=== PATIENT | male | born 1975 | race Caucasian/White ===

== ENCOUNTER 2023-04-04 15:31 | Emergency (ER) | payer MEDICAID, SELFPAY ==
[2023-04-04 15:34] VITALS: BP 172/91; PULSE 89; RESP 20; TEMP 36.6; O2SAT 94; BMI 30.5
--- NOTE | 2023-04-04 15:40 | XR_ITS ---
The [address] [address] Patient Name: ALICIA SANCHEZ MRN: [id number] date: 1975 Sex: M Assigned Patient Location: ER Current Patient Location: ED.MAIN Accession/Order Number: [id number] Exam Date: 04/04/2023 16:09 Report Date: 04/04/2023 17:17 At the request of: MICA ELDER Procedure: XR shoulder RT min 2V EXAM: XR shoulder RT min 2V HISTORY: Injury right shoulder after a fall. COMPARISON: None. TECHNIQUE: 3 views of the right shoulder. FINDINGS: There is an acute displaced fracture involving the right humeral neck and the greater tuberosity. There is medial displacement of the humeral shaft in relation to the humeral head. Degenerative changes of the acromioclavicular joint with inferior spurring. XR/XR shoulder RT min 2V IMPRESSION: Acute displaced fracture involving the right proximal humerus. Electronically authenticated by: MICHELL MOSCOSO Date: 04/04/2023 17:17
--- NOTE | 2023-04-04 15:53 | ED.UPPEXIN1 ---
HPI - Extremity Injury (Upper) General Chief Complaint: Extremity Injury, Upper Stated Complaint: Shoulder Injury from fall in bathroom Time Seen by Provider: 04/04/23 15:45 Source: patient Mode of arrival: walk-in Limitations: no limitations History of Present Illness HPI narrative: patient is a 47-year-old male presents to the Emergency Room with concerns of right shoulder pain. He is right-hand dominant, states he was in the shower when he fell landing directly on the right shoulder. He denies any head or neck injury, no loss of consciousness. Pain 5/10 aching at rest, pain 10/10 with attempteed movement. He denies any pain to his elbow hand or wrist. Patient requests only an ice pack at this time, declined any Tylenol or Motrin. X-ray will be ordered for further evaluation given limited motion. patient not currently working. States he is looking for employment. MD complaint: injury to: Reports right and shoulder Other Extremity Injury: Right: shoulder Hand dominance: right Place: Reports home Severity: moderate Relieving factors: Reports rest Exacerbating factors: Reports movement of extremity Context: Reports fall (patient believes he landed on the outside aspect of his shoulder. Did not brace his fall.) and direct blow Related Data Allergies Allergy/AdvReac Type Severity Reaction Status Date / Time No Known Drug Allergies Allergy Verified 04/04/23 15:39 Review of Systems ROS Constitutional Denies: fever or chills Ears, nose, mouth, and throat Denies: throat pain or neck pain Cardiovascular Denies: chest pain or palpitations Respiratory Denies: shortness of breath or cough Gastrointestinal Denies: abdominal pain or nausea Genitourinary Denies: painful urination Musculoskeletal Denies: back pain or neck pain Integumentary/Breast Denies: rash Neurological Denies: headache or numbness in extremities Psychiatric Denies: anxiety or mood swings Allergic/Immunologic Denies: hives PFSH PFSH Social History Smoking status: Never smoker Exam Narrative Exam Narrative: Nurses notes and vital signs reviewed and patient is not hypoxic. General: The patient appears well and in no apparent distress guarding right shoulder with motion seated on and of bed. Skin: Warm, dry, no pallor noted.no evidence of rash Head: Normocephalic, atraumatic Neck: Supple, trachea mid-line, no tenderness, no lymphadenopathy, no midline neck tenderness. Eye: Pupils are equal, round and reactive to light, EOMI Ears, Nose, Mouth, and Throat: external exam unremarkable. Cardiovascular: Regular Rate and Rhythm Respiratory: Patient is in no distress, no accessory muscle use, lungs are clear to auscultation, no wheezing, rales or rhonchi. Chest Wall: no tenderness, no clavicular tenderness. Back: non-tender, no CVA tenderness Musculoskeletal: no obvious swelling or deformity, localized tenderness to the AC joint of shoulder. Tenderness to the lateral deltoid region, gentle pendulums tolerable to 40 degrees with forward flexion, patient notes significant pain with attempted motion on his own. Patient has full painless range of motion of the elbow hand and wrist. left shoulder unremarkable. Neurological: A&O x4 Psychiatric: Cooperative Constitutional Vital Signs, click to edit/add: Last Vital Signs Temp 97.9 F 04/04/23 15:34 Pulse 89 04/04/23 15:34 Resp 20 04/04/23 15:34 BP 172/91 H 04/04/23 15:34 Pulse Ox 94 L 04/04/23 15:34 O2 Del Method Room Air 04/04/23 15:34 Course Consultations Consultation #1: spoke with Dr. Jenkins via text message, recommended CTof the right shoulder with reconstructions, swelling to the right arm and follow-up in the office tomorrow. Time: 16:52 Vital Signs Vital signs: Vital Signs Temperature 97.9 F 04/04/23 15:34 Pulse Rate 89 04/04/23 15:34 Respiratory Rate 20 04/04/23 15:34 Blood Pressure 172/91 H 04/04/23 15:34 Pulse Oximetry 94 L 04/04/23 15:34 Oxygen Delivery Method Room Air 04/04/23 15:34 Temperature 97.9 F 04/04/23 15:34 Pulse Rate 89 04/04/23 15:34 Respiratory Rate 20 04/04/23 15:34 Blood Pressure 172/91 H 04/04/23 15:34 Pulse Oximetry 94 L 04/04/23 15:34 Oxygen Delivery Method Room Air 04/04/23 15:34 MDM - Extremity Injury (Upper) MDM Narrative Medical decision making narrative: x-ray ordered given limited motion right shoulder following fall with direct injury, patient declines Tylenol and Motrin. Injury occurred prior to arrival, ice pack applied, no obvious deformity. x-ray discussed showing a complex displaced proximal humerus fracture. Reviewed x-rays with Dr. Jenkins orthopedics, recommends CT with reconstructions for likely operative planning, sling and swath and follow up to the office tomorrow. The patient agreeable to pain medication here and two to take home, declined further prescription at this time. Will keep appointment tomorrow with orthopedics scheduled for 10 AM. We discussed the importance of ice, we discussed pain medication. Patient would like to take Tylenol at home but will have [place] on hand if pain worsens discussed importance of sling use pending orthopedic follow-up. The patient is to followup with Dr. Jenkins tomorrow at 10 am: [facility] or to return to the emergency department should any of the signs or symptoms worsen or new symptoms develop. Patient had questions answered. The patient agrees with the following Diagnosis and Treatment plan and the patient will be discharged home. Imaging Data right shoulder: My impression: complex displaced proximal humerus fracture Discharge Plan Discharge Chief Complaint: Extremity Injury, Upper Clinical Impression: Acute pain of right shoulder Fracture of proximal end of right humerus Qualifiers: Encounter type: initial encounter Fracture type: closed Fracture morphology: other fracture Fracture alignment: displaced Qualified Code(s): S42.291A - Other displaced fracture of upper end of right humerus, initial encounter for closed fracture Patient Disposition: Home, Self-Care Time of Disposition Decision: 17:25 Condition: Good Additional Instructions: [place] 5-325 for breakthrough pain one tablet every six hours, Stand Alone Forms: Portal Instructions Referrals: Shane Jenkins MD [Physician] - 04/05/23 10:00 am Procedures ED Procedure Instructions Procedures Procedures: patient placed in a sling and swath, neurovascularly intact status post application to the right arm, pain improved.
--- NOTE | 2023-04-04 16:49 | CT_ITS ---
The [address] [address] Patient Name: ALICIA SANCHEZ MRN: [id number] date: 1975 Sex: M Assigned Patient Location: ER Current Patient Location: Accession/Order Number: [id number] Exam Date: 04/04/2023 17:05 Report Date: 04/04/2023 18:26 At the request of: ZOHAIB LO Procedure: CT shoulder RT wo con EXAM: CT shoulder RT wo con COMPARISON: Same day x-rays. CLINICAL INDICATION: complex shoulder fracture TECHNIQUE: Multiplanar CT images of the right shoulder without contrast. Dose reduction techniques were achieved by using automated exposure control and/or adjustment of mA and/or kV according to patient size and/or use of iterative reconstruction technique. FINDINGS: Acute highly comminuted fracture of the right proximal humerus involving the humeral head and surgical neck. Comminuted fracture of the surgical neck demonstrates severe anteromedial displacement approximately 3 cm as well as significant impaction of fracture fragments. Impacted surgical neck fracture fragment approaching the anterior glenohumeral recess as best seen on series 4 image 29 and series 8 image 53. As best appreciated on axial imaging, comminuted lesser tuberosity humeral head fracture fragments may be anteriorly subluxed relative to the glenoid. There is intra-articular extension into the superior humeral head articular surface as best seen on series 4 image 22 and series 7 image 34. A majority of the articular surface remains intact and appears to maintain somewhat of a relationship with the glenoid, no leslie dislocation. Greater tuberosity comminuted fracture demonstrates impaction and superolateral displacement. Small fracture fragments can be seen interposed between the posterior humeral head articular surface and posterior glenoid on series 4 images 26 and 27 and series 8 image 61. Osteopenia. Moderate osteoarthritis right AC joint. No acute findings in the visualized right chest. CT/CT shoulder RT wo con IMPRESSION: Highly comminuted displaced Neer 4 part right proximal humerus-humeral head fracture. Intra-articular extension and suggestion of anteriorly subluxed lesser tuberosity humeral head fracture fragments relative to the glenoid, without leslie glenohumeral dislocation as described above. Additional details as above. Electronically authenticated by: FARAZ PORTER Date: 04/04/2023 18:26
[2023-04-04] MEDS: HYDROCODONE/ACET 5-325 MG TABLET 2 TAB PO (17:12)
[2023-04-04] MEDS: HYDROCODONE/ACET 5-325 MG TABLET 1 TAB PO (17:13)
== END 2023-04-04 17:23 | disposition home or self-care (01) ==
PROVIDERS: Emergency Provider Emergency Medicine
DX: M25.511 Pain in right shoulder (principal); W18.2XXA Fall in (into) shower or empty bathtub, initial encounter
CPT/HCPCS: 73030; 73200; 99284

== ENCOUNTER 2023-04-08 14:45 | Outpatient (OUT) | payer MEDICAID, SELFPAY ==
--- NOTE | 2023-04-08 | ECG_ITS ---
The [facility] Test Date: 2023-04-08 Pat Name: ALICIA SANCHEZ Department: Room: - Gender: Male [employer]: : 1975 Requested By: [id number] Order Number: [id number] Reading MD: YECENIA GOMEZ Measurements Intervals [place] Rate: 78 P: 71 FL: 149 QRS: 83 QRSD: 86 T: 80 QT: 379 QTc: 432 Interpretive Statements SINUS RHYTHM No previous ECG available for comparison Electronically Signed On 04-10-2023 12:06:35 EST by YECENIA GOMEZ
--- OUTSIDE RECORDS SUMMARY | 2023-04-08 14:50 | XMS_ITS | CCD ---
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 Name Role Phone JACI LASSITER Admitting Unavailable LOUKA, JACI Attending Unavailable ROXY EBNDER Referring Unavailable JESUS MCINTYRE Consulting Unavailable SHALL, CARINA Rey Consulting Unavailable AOUAD, EN Puckett Consulting Unavailable HAQUE, SARANYA Figueroa Consulting Unavailable REQUEST, NONE LISTED Primary Care Unavaila ble PAY, DR HWANG Consulting Unavailable PAY, DR HWANG Attending Unavailable PAY, DR HWANG Admitting Unavailable HOY, DR ULRICH Admitting Unavailable REQUEST, NONE LISTED Primary Care Unavaila ble HOY, DR ULRICH Consulting Unavailable HOY, DR ULRICH Attending Unavailable JenyJelani Attending Unavailab le Jelani Fermin Admitting Unavailab le NON STAFF Primary Care Unavailable Problems Active Problems Problem Classification Problem Date Documented Da te Episodic/Chronic Unclassified (3 sources) CONTACT W/AND (SUSP) EXPOS COVID-19; Translations: [CONTACT W/AND (SUSP) EXPOS COVID-19] Onset: 04-28-2021 Past or Other Problems Problem Classification Problem Date Documented Da te Episodic/Chronic Unclassified (1 source) CONTACT W/AND (SUSP) EXPOS COVID-19; Translations: [CONTACT W/AND (SUSP) EXPOS COVID-19] Onset: 04-25-2021 Results Test Name Value Interpretation Reference Range Facil ity Covid-19 PCR (CVD[facility])on 03-30 SARS-CoV-2 (COVID-19) RNA VIRY+probe Ql (Unsp spec) Not detected Normal NOT DETECTED [facility] Comment on above: Result Comment: This test is not yet approved or cleared by the [place] FDA. When there are no FDA-approved or cleared tests available, and other criteria are met, FDA can make tests available under an emergency access mechanism called an Emergency Use Authorization (EUA). The EUA for this test is supported by the [place] of Health and Human Service's (HHS's) declaration that circumstances exist to justify the emergency use of in vitro diagnostics for the detection and/or diagnosis of the virus that causes COVID-19. This EUA will remain in effect (meaning this test can be used) for the duration of the COVID-19 declaration justifying emergency of IVDs, unless it is terminated or revoked by FDA (after which the test may no longer be used). When diagnostic testing is negative, the possibility of a false negative should be considered in the context of a patient's recent exposures and the presence of clinical signs and symptoms consistent with SARS-CoV-2. Performed By: #### C VDTB #### [facility] [address] [place] [address] Dr. Paola Dominguez Covid-19 PCR ([facility])on 04-29 SARS-CoV-2 (COVID-19) RNA VIRY+probe Ql (Unsp spec) Not detected Normal NOT DETECTED [facility] Comment on above: Result Comment: This test is not yet approved or cleared by the [place] FDA. When there are no FDA-approved or cleared tests available, and other criteria are met, FDA can make tests available under an emergency access mechanism called an Emergency Use Authorization (EUA). The EUA for this test is supported by the [place] of Health and Human Service's (HHS's) declaration that circumstances exist to justify the emergency use of in vitro diagnostics for the detection and/or diagnosis of the virus that causes COVID-19. This EUA will remain in effect (meaning this test can be used) for the duration of the COVID-19 declaration justifying emergency of IVDs, unless it is terminated or revoked by FDA (after which the test may no longer be used). When diagnostic testing is negative, the possibility of a false negative should be considered in the context of a patient's recent exposures and the presence of clinical signs and symptoms consistent with SARS-CoV-2. Performed By: #### C VDTB #### [facility] [address] [place] [address] Swatiandrea Olmos Jose 09-09-2018 Erythrocyte distribution width (RBC) [Ratio] 12.0 % Normal 11.8-14.4 [facility] Comment on above: Performed By: #### C BC #### [address] [address] Patient Registration Clerk: Chaz Sweeney MD Hematocrit (Bld) [Volume fraction] 53.6 % High 40.7-50.3 [facility] Comment on above: Performed By: #### C BC #### [address] [address] Patient Registration Clerk: Chaz Sweeney MD Hemoglobin (Bld) [Mass/Vol] 17.6 g/dL High 13.0-17.0 [facility] Comment on above: Performed By: #### C BC #### [address] [address] Patient Registration Clerk: Chaz Sweeney MD MCH (RBC) [Entitic mass] 30.8 pg Normal 25.2-33.5 [facility] Comment on above: Performed By: #### C BC #### [address] [address] Patient Registration Clerk: Chaz Sweeney MD MCHC (RBC) [Mass/Vol] 32.8 g/dL Normal 28.4-34.8 [facility] Comment on above: Performed By: #### C BC #### [address] [address] Patient Registration Clerk: Chaz Sweeney MD MCV (RBC) [Entitic vol] 93.7 fL Normal 82.6-102.9 [facility] Comment on above: Performed By: #### C BC #### [address] [address] Patient Registration Clerk: Chaz Sweeney MD NRBC Automated 0.0 per 100 WBC Normal 0.0 [facility] Comment on above: Performed By: #### C BC #### [address] [address] Patient Registration Clerk: Chaz Sweeney MD Platelet mean volume (Bld) [Entitic vol] 12.2 fL Normal 8.1-13.5 [facility] Comment on above: Performed By: #### C BC #### [address] [address] Patient Registration Clerk: Chaz Sweeney MD Platelets (Bld) [#/Vol] 263 10*3/uL Normal 138-453 [facility] Comment on above: Performed By: #### C BC #### [address] [address] Patient Registration Clerk: Chaz Sweeney MD RBC (Bld) [#/Vol] 5.72 10*6/uL Normal 4.21-5.77 [facility] Comment on above: Performed By: #### C BC #### [address] [address] Patient Registration Clerk: Chaz Sweeney MD WBC (Bld) [#/Vol] 15.5 10*3/uL High 3.5-11.3 [facility] Comment on above: Performed By: #### C BC #### [address] [address] Patient Registration Clerk: Chaz Sweeney MD PTon 09-09-2018 INR Coag (PPP) [Relative time] 1.0 {INR} Normal [facility] Comment on above: Result Comment: Therapeutic Range: Moderate Anticoagulant Intensity: INR = 2.0-3.0 High Anticoagulant Intensity: INR = 2.5-3.5 Performed By: #### P T #### [address] [address] Patient Registration Clerk: Chaz Sweeney MD PT Coag (PPP) [Time] 10.9 s Normal 9.0-12.0 [facility] Comment on above: Performed By: #### P T #### [address] [address] Patient Registration Clerk: Chaz Sweeney MD Basic Metab w/rfx MGon 09-08 (cont.) Normal [facility] Comment on above: Result Comment: Aver age GFR for 40-49 years old: 99 mL/min/1.73sq m Chronic Kidney Disease: <60 mL/min/1.73sq m Kidney failure: <15 mL/min/1.73sq m eGFR calculated using average adult body mass. Additional eGFR calculator available at: http://www.[address]/multiple_crcl_2011.htm Performed By: #### C BC, BMPX, LIVP #### [place] [address] Patient Registration Clerk: Chaz Sweeney MD Anion gap [Moles/Vol] 20 mmol/L High 9-17 [facility] Comment on above: Performed By: #### C BC, BMPX, LIVP #### [facility] [employer] [address] [place] [address] Patient Registration Clerk: Chaz Sweeney MD Calcium [Mass/Vol] 9.9 mg/dL Normal 8.6-10.4 [facility] Comment on above: Performed By: #### C BC, BMPX, LIVP #### [facility] [employer] [address] [place] [address] Patient Registration Clerk: Chaz Sweeney MD Chloride [Moles/Vol] 101 mmol/L Normal 98-107 [facility] Comment on above: Performed By: #### C BC, BMPX, LIVP #### [facility] [address] [place] [address] Patient Registration Clerk: Chaz Sweeney MD CO2 [Moles/Vol] 19 mmol/L Low 20-31 [facility] Comment on above: Performed By: #### C BC, BMPX, LIVP #### [facility] [address] [place] [address] Patient Registration Clerk: Chaz Sweeney MD Creatinine [Mass/Vol] 0.70 mg/dL Normal 0.70-1.20 [facility] Comment on above: Performed By: #### C BC, BMPX, LIVP #### [facility] [address] [place] [address] Patient Registration Clerk: Chaz Sweeney MD GFR, Amer >60 Normal >60 [facility] Comment on above: Performed By: #### C BC, BMPX, LIVP #### [facility] [address] [place] [address] Patient Registration Clerk: Chaz Sweeney MD GFR,non Amer >60 Normal >60 [facility] Comment on above: Performed By: #### C BC, BMPX, LIVP #### [facility] [employer] [address] [place] [address] Patient Registration Clerk: Chaz Sweeney MD Glucose [Mass/Vol] 149 mg/dL High 70-99 [facility] Comment on above: Performed By: #### C BC, BMPX, LIVP #### [facility] [address] [place] [address] Patient Registration Clerk: Chaz Sweeney MD Potassium [Moles/Vol] 4.0 mmol/L Normal 3.7-5.3 [facility] Comment on above: Performed By: #### C BC, BMPX, LIVP #### [facility] [address] [place] [address] Patient Registration Clerk: Chaz Sweeney MD Sodium [Moles/Vol] 140 mmol/L Normal 135-144 [facility] Comment on above: Performed By: #### C BC, BMPX, LIVP #### [facility] [address] [place] [address] Patient Registration Clerk: Chaz Sweeney MD Urea nitrogen [Mass/Vol] 11 mg/dL Normal -20 [facility] Comment on above: Performed By: #### C BC, BMPX, LIVP #### [facility] [address] [place] [address] Patient Registration Clerk: Chaz Sweeney MD BUN/CRE Ratio NOT REPORTED Normal - [facility] Comment on above: Performed By: #### C BC, BMPX, LIVP #### [facility] [address] [place] [address] Patient Registration Clerk: Chaz Sweeney MD Staging: NOT REPORTED Normal [facility] Comment on above: Performed By: #### C BC, BMPX, LIVP #### [facility] [address] [place] [address] Patient Registration Clerk: Chaz Sweeney MD CBCon 09-08-2018 Erythrocyte distribution width (RBC) [Ratio] 11.8 % Normal 11.8-14.4 [facility] Comment on above: Performed By: #### C BC, BMPX, LIVP #### [facility] [address] [place] [address] Patient Registration Clerk: Chaz Sweeney MD Hematocrit (Bld) [Volume fraction] 55.8 % High 40.7-50.3 [facility] Comment on above: Performed By: #### C BC, BMPX, LIVP #### [facility] [address] [place] [address] Patient Registration Clerk: Chaz Sweeney MD Hemoglobin (Bld) [Mass/Vol] 18.3 g/dL High 13.0-17.0 [facility] Comment on above: Performed By: #### C BC, BMPX, LIVP #### [facility] [address] [place] [address] Patient Registration Clerk: Chaz Sweeney MD MCH (RBC) [Entitic mass] 30.8 pg Normal 25.2-33.5 [facility] Comment on above: Performed By: #### C BC, BMPX, LIVP #### [facility] [employer] [address] [place] [address] Patient Registration Clerk: Chaz Sweeney MD MCHC (RBC) [Mass/Vol] 32.8 g/dL Normal 28.4-34.8 [facility] Comment on above: Performed By: #### C BC, BMPX, LIVP #### [facility] [employer] [address] [place] [address] Patient Registration Clerk: Chaz Sweeney MD MCV (RBC) [Entitic vol] 93.8 fL Normal 82.6-102.9 [facility] Comment on above: Performed By: #### C BC, BMPX, LIVP #### [address] [address] Patient Registration Clerk: Chaz Sweeney MD NRBC Automated 0.0 per 100 WBC Normal 0.0 [facility] Comment on above: Performed By: #### C BC, BMPX, LIVP #### [address] [address] Patient Registration Clerk: Chaz Sweeney MD Platelet mean volume (Bld) [Entitic vol] 11.8 fL Normal 8.1-13.5 [facility] Comment on above: Performed By: #### C BC, BMPX, LIVP #### [facility] [employer] [address] [place] [address] Patient Registration Clerk: Chaz Sweeney MD Platelets (Bld) [#/Vol] 257 10*3/uL Normal 138-453 [facility] Comment on above: Performed By: #### C BC, BMPX, LIVP #### [facility] [employer] [address] [place] [address] Patient Registration Clerk: Chaz Sweeney MD RBC (Bld) [#/Vol] 5.95 10*6/uL High 4.21-5.77 [facility] Comment on above: Performed By: #### C BC, BMPX, LIVP #### [facility] [address] [place], [place] [phone] Patient Registration Clerk: Chaz Sweeney MD WBC (Bld) [#/Vol] 15.1 10*3/uL High 3.5-11.3 [facility] Comment on above: Performed By: #### C BC, BMPX, LIVP #### [facility] [address] [place] [address] Patient Registration Clerk: Chaz Sweeney MD CONSULTATIONon 09-08-[address] [address] CONSULTATION PATIENT NAME: ALICIA ROBERTSON : 1975 MED REC NO: [id number] ROOM: [facility] ACCOUNT NO: [id number] ADMIT DATE: 09/08/2018 PROVIDER: Jesus Mcintyre CONSULT DATE: 09/08/2018 LOCATION: [address], [facility] HISTORY OF PRESENT ILLNESS: This is a 42-year-old who was transferred from [facility] with a sublingual abscess. The reviewers, refer to the chart for definitive details. The patient denies preceding similar history. He admits to awakening yesterday morning with tongue swelling and pain. He denies directed therapy until presenting to the outside facility. The patient denies recent dental injury. 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 CT with contrast was performed earlier today at the outside facility. Report suggested heterogeneous enlargement of the tongue with oropharyngeal narrowing. Also described was a partially circumscribed hypodense lesion in the sublingual space measuring 3.1 x 1.3 cm with surrounding hyperdensity measuring up to 4.3 cm x 1.8 cm. Increased number of borderline enlarged lymph nodes. The patient was subsequently transferred to the [facility] for definitive care. Prior to transfer, he was reportedly administered IV Unasyn, Cleocin, Solu-Medrol. PAST MEDICAL HISTORY: None. BLOOD WORK: 09/08/2018, white blood cell count 15.1, hemoglobin 18.3, platelets within normal limits. PRESENT MEDICATIONS: Include, but are not limited to, Lovenox and Cleocin. ALLERGIES: None. VITAL SIGNS: Temperature 99.3, heart rate 111, respiratory rate 18, blood pressure 115/102, O2 saturation 91% on room air, weight 190 pounds. SOCIAL HISTORY: Former smoker. IMAGING: Repeat CT neck with contrast, per Oral surgery, is pending. PHYSICAL EXAMINATION: Bedside exam was performed with the hospitalist, Dr. Lassiter, in attendance. This revealed a 42-year-old, in no acute distress. His voice was just slightly muffled. There was no respiratory distress or stridor. He did display intermittent cough. He was able to tolerate his own secretions. There was no respiratory distress or stridor. Facial exam was unremarkable. Neck exam visually was unremarkable. Palpation of the neck was unremarkable. The neck was nontender with minimal manipulation. The patient denied otalgia. Bilateral ear exam was unremarkable. Anterior rhinoscopy revealed mild left septal deviation with mild mucosal edema. Oral exam revealed a grossly unremarkable tongue. There was mild floor of mouth edema bilaterally. Of note was end-stage dentition involving the right mandibular apparent second premolar and 2 molars. Buccal and gingival mucosa displayed minimal pale edema. The oropharynx was widely patent. PROCEDURE: Flexible laryngoscopy. The patient remained in his hospital bed. He was placed in the semi-recumbent position. Hospitalist, Dr. Lassiter, was in attendance. Verbal consent was obtained. A lubricated flexible laryngoscope was easily passed through the right nasal airway. The right nasal airway and nasopharynx were unremarkable. The hypopharynx and larynx were unremarkable. There was normal vocal cord anatomy and function. The glottis was widely patent. The immediate subglottis was unremarkable. There was no appreciable hypopharyngeal edema. Tongue base was unremarkable. The endoscope was slowly and gently removed. This completed the procedures. The patient tolerated the procedure without undue discomfort or complication. IMPRESSION: Sublingual abscess per outside CT neck with contrast. This appears to be a primary dental process. There was noted associated end-stage right mandibular dentition. Airway is widely patent per bedside exam including flexible upper airway endoscopy. No immediate intervention is required from an otolaryngology standpoint. Recommend oral surgery consultation for definitive management. Continue Cleocin as ordered. Consider 900 mg q.8 dosing. Consider infectious disease input. Consider Decadron 10 mg IV q. 8. Would also suggest maintaining n.p.o. status. The patient appeared to understand these plans and considerations. All questions were answered. The above was discussed with Dr. Lassiter, the hospitalist. Please do not hesitate to contact myself with any specific questions regarding the above. JESUS MCINTYRE [id number] Doc#: [id number] CC: Normal [facility] CT SOFT TISSUE NECK W ROSEKrissy Gucci 09-08-2018 CT SOFT TISSUE NECK W CONTRAST EXAMINATION: CT OF THE NECK SOFT TISSUE WITH CONTRAST 09/08/2018 TECHNIQUE: CT of the neck was performed with the administration of intravenous contrast. Multiplanar reformatted images are provided for review. Dose modulation, iterative reconstruction, and/or weight based adjustment of the mA/kV was utilized to reduce the radiation dose to as low as reasonably achievable. COMPARISON: None. HISTORY: ORDERING SYSTEM PROVIDED HISTORY: sublingual abscess TECHNOLOGIST PROVIDED HISTORY: Ordering Physician Provided Reason for Exam: sublingual abscess swelling under tongue FINDINGS: PHARYNX/LARYNX: The palatine tonsils are normal in appearance. The tongue is normal in appearance. The valleculae, epiglottis, aryepiglottic folds and pyriform sinuses appear unremarkable. The true and false vocal cords are normal in appearance. No mass or abscess is seen. SALIVARY GLANDS/THYROID: The parotid and submandibular glands appear unremarkable. The thyroid gland appears unremarkable. LYMPH NODES: No cervical or supraclavicular lymphadenopathy is seen. SOFT TISSUES: No appreciable soft tissue swelling or mass is seen. BRAIN/ORBITS/SINUSES: The visualized portion of the intracranial contents appear unremarkable. The visualized portion of the orbits, paranasal sinuses and mastoid air cells demonstrate no acute abnormality. LUNG APICES/SUPERIOR MEDIASTINUM: No focal consolidation is seen within the visualized lung apices. No superior mediastinal lymphadenopathy or mass. The visualized portion of the trachea appears unremarkable. BONES: No aggressive appearing lytic or blastic bony lesion. IMPRESSION: No acute abnormality of the soft tissue structures of the neck. No sublingual abscess noted. Interpreted by: Derrell Zamora MD Signed by: Derrell Zamora MD 09/08/18 Final result Normal [facility] Liver Profileon 09-08-2018 Albumin [Mass/Vol] 4.4 g/dL Normal 3.5-5.2 [facility] Comment on above: Performed By: #### C BC, BMPX, LIVP #### [facility] [address] [place] [address] Patient Registration Clerk: Chaz Sweeney MD Albumin/Globulin [Mass ratio] 1.2 {ratio} Normal 1.0-2.5 [facility] Comment on above: Performed By: #### C BC, BMPX, LIVP #### [facility] [employer] [address] [place] [address] Patient Registration Clerk: Chaz Sweeney MD Alkaline Phos 119 U/L Normal 40-129 [facility] Comment on above: Performed By: #### C BC, BMPX, LIVP #### [facility] [employer] [address] [place] [address] Patient Registration Clerk: Chaz Sweeney MD ALT [Catalytic activity/Vol] 82 U/L High 5-41 [facility] Comment on above: Performed By: #### C BC, BMPX, LIVP #### [facility] [employer] [address] [place] [address] Patient Registration Clerk: Chaz Sweeney MD AST [Catalytic activity/Vol] 37 U/L Normal <40 [facility] Comment on above: Performed By: #### C BC, BMPX, LIVP #### [facility] [employer] [address] [place] [address] Patient Registration Clerk: Chaz Sweeney MD Bilirubin Ql (U) 0.91 mg/dL Normal 0.3-1.2 [facility] Comment on above: Performed By: #### C BC, BMPX, LIVP #### [facility] [employer] [address] [place] [address] [place] [address] Patient Registration Clerk: Chaz Sweeney MD Bilirubin, Indirect 0.51 mg/dL Normal 0.00-1.00 [facility] Comment on above: Performed By: #### C BC, BMPX, LIVP #### [facility] [address] [place] [address] Patient Registration Clerk: Chaz Sweeney MD Bilirubin.direct [Mass/Vol] 0.40 mg/dL High <0.31 [facility] Comment on above: Performed By: #### C BC, BMPX, LIVP #### [facility] [address] [place] [address] Patient Registration Clerk: Chaz Sweeney MD Protein [Mass/Vol] 8.2 g/dL Normal 6.4-8.3 [facility] Comment on above: Performed By: #### C BC, BMPX, LIVP #### [facility] [address] [place] [address] Patient Registration Clerk: Chaz Sweeney MD Globulin (S) [Mass/Vol] NOT REPORTED Normal 1.5-3.8 [facility] Comment on above: Performed By: #### C BC, BMPX, LIVP #### [facility] [address] [place] [address] Patient Registration Clerk: Chaz Sweeney MD Encounters Encounter Date Encounter Type Care Provider Facility Start: 12-17-2022 ambulatory Jelani West acility:[facility] Start: 04-25-2021 End: 04-25-[address] NONE LISTED REQUEST Facility:[facility] Start: 05-09-2020 End: 05-09-[address] SERG ZAMORA Facility:[facility] Start: 09-08-2018 End: 2018 Evaluation and management of inpatient JACI LASSITER [facility] Procedures Date Procedure Procedure Detail Performing Clinician Start: 2018 INITIATE OXYGEN THER APY PROTOCOL JACI MAIKOL Start: 2018 INTAKE AND OUTPUT SHERE EN MAIKOL Start: 09-09-2018 DISCHARGE PATIENT RADHA LASSITER Start: 09-09-2018 Blood count complete automated JACI LASSITER Start: 09-09-2018 INITIATE OXYGEN THER APY PROTOCOL JACI LASSITER Start: 09-09-2018 Prothrombin time JACQUELINE LASSITER Start: 09-09-2018 INTAKE AND OUTPUT RADHA LASSITER Start: 09-09-2018 DAILY WEIGHTS JACI MACKEY Start: 09-08-2018 DIET DENTAL SOFT JACQUELINE N MAIKOL Start: 09-08-2018 IP CONSULT TO INFECT IOUS DISEASES JACI LASSITER Start: 09-08-2018 Ct soft tissue neck w/contrast material JACI LASSITER Start: 09-08-2018 Blood count complete automated JACI LASSITER Start: 09-08-2018 Comprehensive metabolic panel JACI LASSITER Start: 09-08-2018 Hepatic function panel JACI LASSITER Start: 09-08-2018 IP CONSULT TO ORAL SURGERY JACI LASSITER Start: 09-08-2018 FULL CODE JACI PEDRAZA Start: 09-08-2018 INITIATE OXYGEN THER APY PROTOCOL JACI LASSITER Start: 09-08-2018 INTAKE AND OUTPUT RADHA LASSITER Start: 09-08-2018 IP CONSULT TO OTOLARYNGOLOGY JACI LASSITER Start: 09-08-2018 NOTIFY PHYSICIAN (SPECIFY) JACI LASSITER Start: 09-08-2018 OT EVAL AND TREAT RADHA LASSITER Start: 09-08-2018 PLACE INTERMITTENT P NEUMATIC COMPRESSION DEVICE JACI LASSITER Start: 09-08-2018 PT EVAL AND TREAT RADHA LASSITER Start: 09-08-2018 VITAL SIGNS JACI PEDRAZA Start: 09-08-2018 PATIENT STATUS (DIRECT) JACI LASSITER Payers Date Payer Category Payer Self-pay 1975 Unknown [id number] 1973 Unknown [id number] 1973 Unknown [id number] 1959 Unknown [id number] Summary Purpose Family History No Family History Records FoundNo Family History Records FoundNo Family History Records Found Advance Directives No Advanced Directives Records FoundNo Advanced Directives Records FoundNo Advanced Directives Records Found Additional Source Comments (unrecognized sect ion and content) No Status Records FoundNo Status Records FoundNo Status Records Found INFORMATION SOURCE (unrecogn ized section and content) DATE CREATED AUTHOR 10/07/2018 [facility] DATE CREATED AUTHOR AUTHOR'S ORGANIZ ATION 04/28/2021 [facility] DATE CREATED AUTHOR AUTHOR'S ORGANIZ ATION 03/13/2023 [facility] FOR RECORDS PERTAINING TO PATIENTS WHO ARE OR HAVE BEEN ENROLLED IN A CHEMICAL DEPENDENCY/SUBSTANCEABUSE PROGRAM, SOME INFORMATION MAY BE OMITTED. This clinical summary was aggregated from multiple sources. Caution should be exercised in using it in the provision of clinical care. This summary normalizes information from multiple sources, and as a consequence, information in this document may materially change the coding, format and clinical context of patient data. In addition, data may be omitted in some cases. CLINICAL DECISIONS SHOULD BE BASED ON THE PRIMARY CLINICAL RECORDS. [facility] [employer] provides no warranty or guarantee of the accuracy or completeness of information in this document.
[2023-04-08 15:28] LABS: Basophils Percent Auto 0.3 % (0.2-2.0); Eosinophils Percent Auto 0.4 % (0.9-7.0); Hematocrit 40.8 % (42.0-54.0); Hemoglobin 13.7 g/dL (14.0-18.0); Immature Granulocytes Abs Auto 0.02 10^3/uL (0.00-0.03); Immature Granulocytes Pct Auto 0.3 % (0.0-0.5); Lymphocytes Absolute Auto 1.5 10^3/uL (1.2-3.8); Mean Corpuscular HGB Conc 33.6 g/dL (29.9-35.2); Mean Corpuscular Hemoglobin 29.2 pg (25.9-34.0); Mean Platelet Volume 11.3 fL (9.5-13.5); Monocytes Absolute Auto 0.9 10^3/uL (0.3-0.8); Monocytes Percent Auto 13.7 % (1.7-12.0); Neutrophils Absolute Auto 4.3 10^3/uL (1.4-6.5); Neutrophils Percent Auto 63.3 % (43.0-75.0); Platelet Count 282 10^3/uL (150-450); Red Blood Count 4.69 10^6/uL (4.70-6.10); Red Cell Distribution Width 12.8 % (11.0-15.0); White Blood Count 6.9 10^3/uL (4.0-11.0)
[2023-04-08 15:48] LABS: Anion Gap 12.5; BUN Creatinine Ratio 16.9; Calcium 9.3 mg/dL (8.5-10.1); Chloride 100 mmol/L (98-107); Estimated GFR (African America >60 (>=60); Estimated GFR (Non-African Ame >60 (>=60); Glucose 93 mg/dL (74-106); Potassium 3.5 mmol/L (3.5-5.1); Sodium 134 mmol/L (136-145)
== END 2023-04-08 14:46 | disposition home or self-care (01) ==
DX: Z01.818 Encounter for other preprocedural examination (principal); Z01.812 Encounter for preprocedural laboratory examination
CPT/HCPCS: 36415; 80048; 85025; 93005

== ENCOUNTER 2023-06-10 09:31 | Outpatient (OUT) | payer MEDICAID, SELFPAY ==
--- NOTE | 2023-06-10 09:35 | CT_ITS ---
[address] [address] Patient Name: ALICIA SANCHEZ MRN: [id number] date: 1975 Sex: M Assigned Patient Location: CT Current Patient Location: Accession/Order Number: [id number] Exam Date: 06/10/2023 09:40 Report Date: 06/11/2023 07:49 At the request of: NON-STAFF PHYSICIAN Procedure: CT shoulder RT wo con EXAMINATION: CT shoulder RT wo con HISTORY: Painful orthopaedic hardware T84.84XA COMPARISON: No relevant comparison available. TECHNIQUE: Multi-planar CT images were created without and/or with IV contrast according to examination type. Dose reduction techniques were achieved by using automated exposure control and/or adjustment of mA and/or kV according to patient size and/or use of iterative reconstruction technique. FINDINGS: BONES: Prior humeral neck fracture with repair via a lateral plate and screws. Several screws contact or may penetrate the articular surface of the humeral head. One of the screws extends through the articular surface into the glenoid 3 mm. SOFT TISSUES: Negative. No visible soft tissue swelling. EFFUSION: None visible. OTHER: Negative. CT/CT shoulder RT wo con IMPRESSION: 1. Plate and screw repair of proximal right humerus with penetration of at least one of the screws through the humeral head articular surface into the glenoid. Electronically authenticated by: YIMI GALAN Date: 06/11/2023 07:49
== END 2023-06-10 09:32 | disposition home or self-care (01) ==
LOC: CT 09:31
DX: T84.84XA Pain due to internal orthopedic prosthetic devices, implants and grafts, initial encounter (principal); S42.241D 4-part fracture of surgical neck of right humerus, subsequent encounter for fracture with routine healing; Z98.890 Other specified postprocedural states
CPT/HCPCS: 73200

== ENCOUNTER 2023-07-22 12:37 | Outpatient (RCR) | payer MEDICAID, SELFPAY | END 2023-11-03 13:30 | disposition home or self-care (01) | LOC: PT 12:37 | PROVIDERS: Visit Provider Orthopaedic Surgery | DX: S42.241D 4-part fracture of surgical neck of right humerus, subsequent encounter for fracture with routine healing (principal); Z47.89 Encounter for other orthopedic aftercare | CPT/HCPCS: 97110; 97140; 97162 ==